=== PATIENT | female | born 1940 | race Caucasian/White ===

== ENCOUNTER 2024-11-11 12:24 | Emergency (ER) | payer OTHER, SELFPAY ==
[2024-11-11 12:33] VITALS: BP 182/98
[2024-11-11 13:00] VITALS: BP 183/83
[2024-11-11 13:19] VITALS: BMI 24.7
[2024-11-11 14:00] VITALS: BP 179/73
--- NOTE | 2024-11-11 14:26 | ED.GENMED ---
Addendum entered and electronically signed by Gregorio Pelaez DO 11/11/24 15:28:
Balloon packing placed in left nare after patient continued to bleed. [place] text message sent to Loyd Cox, on-call ENT requested to see patient.
Original Note:
History of Present Illness
General
Chief Complaint: Nose Bleed
Source: patient and family
Exam Limitations: none
Time Seen by Provider: 11/11/24 13:08
Nursing documentation reviewed up to this point in time: agreed with
History of Present Illness
History of Present Illness:
84-year-old female presents emergency department complaining of nosebleed starting this morning, from both nares, worse on the right. She is not taking blood thinners, but has frequent nosebleed
Past History
Past History
ED Past Medical History: Hypercholesterolemia and Other (Epistaxis)
ED Past Surgical History: Appendectomy, Orthopedic (Left knee) and Other (Mastectomy)
Social History
Tobacco: Non-smoker
Alcohol: None
Drug: None
Review of Systems
Review of Systems
Allergies reviewed?: Yes
All Other Systems: Not applicable
Constitutional: Reports no symptoms
EENT: Reports other (Nosebleed)
Respiratory: Reports no symptoms
Cardiac: Reports no symptoms
ABD/GI: Reports no symptoms
: Reports no symptoms
Musculoskeletal: Reports no symptoms
Skin: Reports no symptoms
Neurological: Reports no symptoms
Endocrine: Reports no symptoms
Hematologic/Lymphatic: Reports bleeding
Psychiatric: Reports no symptoms
Phy Exam
Physical Exam
Physical Exam:
Physical Exam
General: no apparent distress, not acutely ill
Neck: supple. no meningeal signs. normal posterior pharynx
Heart: s1/s2 regular rate and rhythm, no murmur. equal radial
pulses.
HEENT: Pupils equal round reactive to light, EOMI, anterior bleeding site right nare
Lungs: no acute respiratory distress. clear bilaterally
Abdomen: normal bowel sounds. not tender. no CVAT
Neuro: alert and oriented. no focal neurological deficits
Skin: no rash
Psychiatric: well kept. interactive and cooperative
Extremities: no edema. good distal pulses
Course
Vital Signs
Initial and Last Documented VS:
Initial Vital Signs
Temp Pulse Resp BP Pulse Ox
97.8 F 78 18 182/98 99
11/11/24 12:33 11/11/24 12:33 11/11/24 12:33 11/11/24 12:33 11/11/24 12:33
Last Documented Vital Signs
Temp Pulse Resp BP Pulse Ox
97.8 F 78 18 182/98 99
11/11/24 12:33 11/11/24 12:33 11/11/24 12:33 11/11/24 12:33 11/11/24 12:33
Procedures
Nosebleed
Drug treatment: Lidocaine and Epinephrine
Treatment: Silver nitrate cautery and Merocel packing
Post treatment bleeding: none- good control
MDM/Problems Addressed
Differential Diagnosis Includes:
Anterior versus posterior epistaxis
MDM/Problems Addressed:
84-year-old female with anterior epistaxis, controlled with cautery. Follow-up with ENT. Return precautions given.
*Pulse Oximetry
Patient hypoxic: no
*Critical Care Note
Total Time (30-74mins, 75-104mins- exclusive of procedures): Not Applicable
Patient Management
Social determinants of health affecting care: Living situation and Strong social support
Escalation/DeEscalation of care consider admission/obs:
Admit not indicated
ED Attending Note
-
Portions of this chart may have been created with voice recognition software.� Occasional wrong word or��sound alike� substitutions may have occurred due to the inherent limitations of voice recognition software.
Discharge Plan
Departure
Patient Disposition: Home (Routine Discharge)
Date of Disposition: 11/11/24
Time of Disposition: 14:29
Patient with high blood pressure during this ER visit?: Yes
Condition: Good
Discharge Problem:
Acute anterior epistaxis
Instructions: Nosebleeds (DC), BLOOD PRESSURE
Referrals:
Lulú Henning DO [Family Provider] -
Justus Lay MD [Active] - Call in 1-3 days for appt
Interventions
Interventions:
*Risk Screen - Suicide Last Done: 11/11/24 12:40
*General Assessment Last Done: 11/11/24 12:40
*Neglect/Abuse Screening Last Done: 11/11/24 12:40
*ED- Fall Risk Assessment Last Done: 11/11/24 13:19
*ED COVID-19 Vaccine History Last Done: 11/11/24 12:40
ED-EENT Assessment Last Done: 11/11/24 13:19
Discharge Date and Time
Print Language: SINHALA
[2024-11-11 16:30] VITALS: BP 179/88
--- NOTE | 2024-11-11 16:30 | EDRN ---
Discharge instructions reviewed with patient. Verbalized understanding. Ambulated with steady gait to the lobby.
--- NOTE | 2024-11-11 16:30 | CON.MD ---
Consultation - Medical
-
Chief complaint: Epistaxis
History of present illness: This patient is an 84-year-old woman with a history of hypertension but who is not on blood thinners who experiences recurrent epistaxis from the right side usually. Today she is experiencing bleeding from the left side.
She was recently in the office and her right nose was cauterized. She is otherwise medically stable. She has not injured her nose but has a history of a fairly severe deviation of the septum toward the right side.
Past medical history:
Medical problems: Hypertension, recurrent epistaxis, deviated septum
Allergies: The patient is allergic to lisinopril and valsartan both of which caused rashes
Home medications: None indicated
Family history: Asked and is noncontributory for this problem
Hospitalizations: The patient is currently in the emergency room for epistaxis and was in the emergency room several years ago for the same thing.
Past surgical history: Denies history of nasal surgery, scheduled for knee replacement soon
Review of systems: Positive for recurrent epistaxis usually from the right side but today from the left side. Negative for nasal pain, negative for nasal trauma
Physical examination:
Head: Atraumatic and normocephalic
Eyes: Some blood around medial eye near tear duct punctum, otherwise normal, extraocular movements are intact, pupils are equal and reactive to light,
Nose: Severe deviation of the septum towards the right side, rapid Rhino balloon pack hanging out of left nose, adequate visualization was not possible with a speculum
Oral cavity/oropharynx: Some bloody postnasal drip, relatively mild
Ears: Normal to examination
Neck: Supple without adenopathy
Thyroid gland: Normal to examination
Salivary glands: Normal to examination
Cranial nerves: 2 through 12 are intact
Voice: Normal volume and tone
Procedure: Nasal endoscopy with cautery of nose
The pack was removed from the left nose. The left nose was evaluated after topical anesthesia using lidocaine and Kem-Synephrine on cotton balls were placed in both sides of the nose. Extensive clot was removed from the posterior nose and from the
nasopharynx through the left nostril. No active bleeding was seen. The right nose was then visualized by pulling the nostril laterally and looking just behind the deviation. The patient was noted to have a bleeding area of the superior septum
just behind the deviation. This was extensively cauterized using silver nitrate with 4 separate passes required to stop the bleeding. The nose was then packed with a cottonball coated with Polysporin ointment.
Impression/plan: This patient with a severe septal deviation to the right side presents with recurrent epistaxis which appears to be from the right side even though the blood is coming out of the left nostril. I explained to her that this happens
when the bleeding areas behind the septal deviation. The bleeding area was found with the aid of a nasal endoscope and was extensively cauterized as indicated above. The nose was packed with a cottonball coated with Polysporin. She will leave
this in place until tomorrow. She can use Tylenol but not Advil. She will follow-up in the office in the next week for recheck. She can follow-up sooner if she has problems.
[2024-11-11 16:35] VITALS: BP 179/88
== END 2024-11-11 16:40 | disposition home or self-care (01) ==
LOC: EMR 12:24
PROVIDERS: EMERGENCY PHYSICIAN Emergency Medicine; FAMILY PHYSICIAN Family Medicine; OTHER PHYSICIAN Otolaryngology Facial Plastic Surgery
DX: R04.0 Epistaxis (principal); J34.2 Deviated nasal septum; M19.90 Unspecified osteoarthritis, unspecified site; E78.5 Hyperlipidemia, unspecified; Z85.3 Personal history of malignant neoplasm of breast; Z88.8 Allergy status to other drugs, medicaments and biological substances
CPT/HCPCS: 99283; 30901